=== PATIENT | female | born 1960 | race American Indian/Alaskan Native ===

== ENCOUNTER 2018-02-04 15:47 | Emergency (ER) | payer OTHER, MEDICARE ==
[2018-02-04 16:13] VITALS: BP 140/107
== END 2018-02-04 19:01 | disposition left against medical advice (07) ==
LOC: ED 15:47
DX: T21.02XA Burn of unspecified degree of abdominal wall, initial encounter (principal); Z53.21 Procedure and treatment not carried out due to patient leaving prior to being seen by health care provider; X08.8XXA Exposure to other specified smoke, fire and flames, initial encounter; Y93.89 Activity, other specified; Y99.8 Other external cause status; Y92.89 Other specified places as the place of occurrence of the external cause

== ENCOUNTER 2018-12-02 10:18 | Outpatient (CLI) | payer MEDICARE, OTHER ==
--- NOTE | 2018-12-02 12:05 | Cat Scan Report ---
FINAL REPORT EXAM: CT CHEST WO CON HISTORY: Encounter for screening for malignant neoplasm of respiratory org TECHNIQUE: CT of chest without IV contrast. PRIORS: None currently available. FINDINGS: 13.4 x 3.9 mm focal area of irregular pleural thickening in the right upper lobe on series 3: 58-65. Minimal scarring in the periphery of both lungs and lung bases noted. No pneumothorax. No distinct co nsolidation. No effusion. No endobronchial lesions. Main pulmonary artery is unremarkable. No aortic aneurysm. Heart size unremarkable. No pericardial effusion. There is no axillary adenopathy. There is no hilar or mediastinal mass or adenopathy. Limited noncontrast CT images of the esophagus are grossly unremarkable. Dense lesion in the upper cortex of the left kidney measures 8.4 mm. No suspicious osseous lesions on this limited examination of the skeleton. Metastatic disease better evaluated with bone scan. Degenerative changes are present in the spine. IMPRESSION: Evaluation limited by the lack of coronal sagittal reconstructed imaging. Nonspecific area of pleural thickening in the right upper lobe. Differential diagnosis includes pleur al base mass. Further workup with biopsy, PET-CT scan, and or short-term follow-up CT may be helpful if clinically indicated. Dense left renal cortical lesion. Correlation with CT urogram may be helpful if clinically indicated.
== END 2018-12-02 10:19 | disposition home or self-care (01) ==
LOC: CT 10:18
PROVIDERS: ATTEND Internal Medicine
DX: Z12.2 Encounter for screening for malignant neoplasm of respiratory organs (principal); J98.4 Other disorders of lung; F17.200 Nicotine dependence, unspecified, uncomplicated; M47.899 Other spondylosis, site unspecified
CPT/HCPCS: 36415; 71250; 82565; 84520

== ENCOUNTER 2019-09-03 09:09 | Outpatient (CLI) | payer MEDICARE, OTHER ==
[2019-09-03 09:56] LABS: Hematocrit 39.4 % (30.3-42.9); Hemoglobin 13.3 gm/dl (10.1-14.3); Mean Corpuscular HGB Conc 34 % (30-34); Mean Corpuscular Volume 93 fl (79-97); Platelet Count 264 K/mm3 (140-440); Red Blood Count 4.24 M/mm3 (3.65-5.03); Red Cell Distribution Width 14.8 % (13.2-15.2)
[2019-09-03 10:18] LABS: Albumin 4.8 g/dL (3.9-5); Calcium 9.4 mg/dL (8.4-10.2)
[2019-09-03 10:19] LABS: Erythrocyte Sedimentation Rate 9 mm/Hr (0-20)
[2019-09-06 12:32] LABS: ANA Screen, IFA Negative (Negative)
== END 2019-09-03 09:10 | disposition home or self-care (01) ==
LOC: LAB 09:09
PROVIDERS: ATTEND Specialist
DX: G35 Multiple sclerosis (principal); R79.89 Other specified abnormal findings of blood chemistry; Z11.59 Encounter for screening for other viral diseases
CPT/HCPCS: 36415; 80053; 82607; 83036; 83921; 84443; 85027; 85652; 86038; 86225; 86592; 86618

== ENCOUNTER 2019-11-10 09:34 | Outpatient (CLI) | payer MEDICARE, OTHER ==
--- NOTE | 2019-11-10 12:29 | Fluoroscopy Report ---
AIR-CONTRAST BARIUM ENEMA HISTORY: Incomplete colonoscopy COMPARISON: None at this facility. FINDINGS: [employer] film of the abdomen is within normal limits. A rectal tube was inserted for retrograde administ ration of barium contrast agent. Air contrast was also added. There is normal caliber and distensibility of the colon throughout. No mucosal lesion, stenosis, mass or diverticula. The cecum and ascending colon are unremarkable. Reflux into a normal-appearing appendix and terminal small bowel loops. Normal postevacuation film. 2.0 minutes of fluoroscopy time was utilized. 19 fluoroscopic images were saved. IMPRESSION: Normal exam. Signer Name: Wilfredo Yee Jr, MD Signed: 11/10/2019 12:25 PM Workstation Name: [id number]
== END 2019-11-10 09:35 | disposition home or self-care (01) ==
LOC: FLUORO 09:34
PROVIDERS: ATTEND Internal Medicine Gastroenterology
DX: Z53.20 Procedure and treatment not carried out because of patient's decision for unspecified reasons (principal)
CPT/HCPCS: 74280

== ENCOUNTER 2022-02-21 09:22 | Outpatient (CLI) | payer MEDICARE, OTHER ==
--- NOTE | 2022-02-21 13:15 | Fluoroscopy Report ---
BARIUM SWALLOW Indication: F17.200 SMOKER GERD K21.9. Technique: Single and double contrast barium technique utilized to evaluate the esophagus. FINDINGS: To begin the exam, swallowing was evaluated in the lateral position under direct fluorosco py. Swallowing was normal. A small esophageal web is identified along the anterior surface of the cervical esophagus at the leve l of C5. This web but measures approximately 2-3 in AP dimension. This does not appear to obstruct. T he patient was able to ingest a barium tablet without difficulty. The remainder of the esophagus is u nremarkable. There were no abnormal tertiary contractions as seen with dysmotility. No hiatal hernia or gastroesophageal reflux was witnessed. IMPRESSION: Small cervical esophageal web as described. The clinical significance of this is unclear . This does not appear to obstruct. Fluoroscopic time: 2.2 minutes Number of fluoroscopic images: 73 Signer Name: Wilfredo Yee Jr, MD Signed: 02/21/2022 1:11 PM Workstation Name: [id number]
== END 2022-02-21 09:23 | disposition home or self-care (01) ==
LOC: FLUORO 09:22
PROVIDERS: ATTEND Otolaryngology
DX: K21.9 Gastro-esophageal reflux disease without esophagitis (principal); Q39.4 Esophageal web; F17.200 Nicotine dependence, unspecified, uncomplicated
CPT/HCPCS: 74221